=== PATIENT | male | born 1975 | race Caucasian/White ===

== ENCOUNTER 2019-07-11 16:33 | Observation (INO) ==
[2019-07-11] MEDS ORDERED: Tdap (Boostrix) Vaccine 0.5 ML SYRINGE IM ONE (16:43)
[2019-07-11] MEDS ORDERED: *HR* HYDROmorphone 2 MG/ML SYRINGE IVP STA (16:45)
[2019-07-11 21:41] LABS: Basophils % 0.1 %; Hematocrit 43.9 % (37.5-50.1); Hemoglobin 14.9 g/dL (12.9-16.9); Immature Granulocytes % 0.5 % (0-4); Lymphocytes # 0.7 K/mcL (0.6-4.6); Lymphocytes % 4.3 %; Mean Corpuscular HGB Conc 33.9 g/dL (31.6-35.5); Mean Corpuscular Hemoglobin 30.4 pg (28.0-33.3); Mean Corpuscular Volume 89.6 fL (83.0-100.0); Mean Platelet Volume 10.5 fL (9.4-12.4); Monocytes # 1.2 K/mcL (0.0-1.3); Monocytes % 7.1 %; Platelet Count 330 K/mcL (140-400); Red Cell Distribution Width 13.5 % (11.5-14.5)
[2019-07-11 22:04] LABS: BUN/Creatinine Ratio 16 (6-26); Blood Urea Nitrogen 19 mg/dL (6-20); Calcium 8.9 mg/dL (8.6-10.3); Carbon Dioxide 26 mEq/L (23-29); Chloride 103 mEq/L (98-107); Glucose 186 mg/dL (70-105); Osmolality,Calculated 293 (280-300); Potassium 3.7 mEq/L (3.5-5.1); Sodium 138 mEq/L (136-145); Troponin I 0.06 ng/mL (< 0.04); eGFR For African Americans > 60 (> 60); eGFR For Non-African Americans > 60 (> 60)
[2019-07-11] MEDS ORDERED: Aspirin 81 MG TAB.CHEW PO ONE (22:21)
[2019-07-11] MEDS ORDERED: Aspirin 81 MG TAB.CHEW ONE (22:35)
[2019-07-11] MEDS ORDERED: Isovue-370 500 ML BOTTLE IVP ONE (23:18)
[2019-07-12] MEDS ORDERED: Ondansetron 4 MG/2 ML VIAL IVP PRN ×3 (00:29→23:26)
[2019-07-12] MEDS ORDERED: Naloxone 0.4 MG/ML INJ IVP PRN ×3 (00:29→23:26)
[2019-07-12] MEDS ORDERED: Acetaminophen 325 MG TABLET PO PRN ×2 (00:29→23:26)
[2019-07-12] MEDS: *HR* OxyCODONE Immed Rel 5 MG TABLET PO PRN ×3 (02:23→15:18)
[2019-07-12 03:05] LABS: Basophils % 0.2 %; Hematocrit 40.3 % (37.5-50.1); Hemoglobin 13.7 g/dL (12.9-16.9); Immature Granulocytes % 0.3 % (0-4); Lymphocytes # 1.2 K/mcL (0.6-4.6); Lymphocytes % 10.4 %; Mean Corpuscular Hemoglobin 30.4 pg (28.0-33.3); Mean Corpuscular Volume 89.4 fL (83.0-100.0); Mean Platelet Volume 10.3 fL (9.4-12.4); Monocytes # 1.3 K/mcL (0.0-1.3); Monocytes % 11.2 %; Neutrophils # 8.9 K/mcL (1.6-8.9); Platelet Count 314 K/mcL (140-400); Red Blood Count 4.51 M/mcL (4.19-5.50); Red Cell Distribution Width 13.5 % (11.5-14.5); Segmented Neutrophils % 77.9 %; White Blood Count 11.4 K/mcL (4.3-11.1)
[2019-07-12 03:24] LABS: BUN/Creatinine Ratio 17 (6-26); Blood Urea Nitrogen 19 mg/dL (6-20); Calcium 8.6 mg/dL (8.6-10.3); Carbon Dioxide 23 mEq/L (23-29); Chloride 103 mEq/L (98-107); Glucose 144 mg/dL (70-105); Magnesium 1.7 mg/dL (1.6-2.6); Osmolality,Calculated 285 (280-300); Potassium 3.8 mEq/L (3.5-5.1); Sodium 135 mEq/L (136-145); eGFR For African Americans > 60 (> 60); eGFR For Non-African Americans > 60 (> 60)
[2019-07-12] MEDS ORDERED: *HR* Metoprolol 5 MG/5 ML VIAL IVP ONE (03:45)
[2019-07-12] MEDS: *HR* Heparin 5,000 UNIT/ML VIAL SQ SCH ×2 (05:03→09:36)
[2019-07-12] MEDS ORDERED: amLODIPine 5 MG TABLET PO SCH (12:15)
[2019-07-12] MEDS ORDERED: Perflutren Lipid Microsphere 1.3 ML in 0.9 % Sodium Chloride 8.7 ML IVP ONE (12:53)
[2019-07-12] MEDS ORDERED: *HR* HYDROmorphone PF 0.5 MG/0.5 ML SYRINGE IVP PRN (19:50)
[2019-07-12] MEDS ORDERED: *HR* FentaNYL (PF) 100 MCG/2 ML VIAL ONE (20:12)
[2019-07-12] MEDS ORDERED: *HR* Propofol 200 MG/20 ML VIAL IVP ONE (20:12)
[2019-07-12] MEDS ORDERED: *HR* Midazolam HCl 2 MG/2 ML VIAL ONE (20:12)
[2019-07-12] MEDS ORDERED: Dexamethasone 4 MG/ML VIAL ONE (20:13)
[2019-07-12] MEDS ORDERED: Lidocaine -MPF 2% 2 ML VIAL ONE (20:13)
[2019-07-12] MEDS ORDERED: Ondansetron 4 MG/2 ML VIAL ONE (20:13)
[2019-07-12] MEDS ORDERED: *HR* HYDROMORPHONE 2 MG/ML VIAL ONE (20:38)
[2019-07-12] MEDS ORDERED: Acetaminophen IV 1,000 MG/100 ML INFUS..BTL ONE (20:42)
[2019-07-12] MEDS ORDERED: Sennosides 8.6 MG TABLET PO PRN (23:26)
[2019-07-12] MEDS ORDERED: MOM Conc 10 ML UD.LIQ PO PRN (23:26)
[2019-07-12] MEDS ORDERED: *HR* OxyCODONE Immed Rel 5 MG TABLET PO PRN (23:26)
[2019-07-12] MEDS ORDERED: Ringers Solution, Lactated 1,000 ML IVC SCH (23:26)
[2019-07-12] MEDS ORDERED: *HR* Promethazine 25 MG/ML VIAL IVP PRN (23:26)
[2019-07-13] MEDS ORDERED: ceFAZolin 2,000 MG in 0.9 % Sodium Chloride 100 ML IVPB SCH
[2019-07-13 02:28] LABS: Basophils % 0.1 %; Hematocrit 35.1 % (37.5-50.1); Immature Granulocytes % 0.5 % (0-4); Lymphocytes # 0.6 K/mcL (0.6-4.6); Lymphocytes % 7.5 %; Mean Corpuscular HGB Conc 33.9 g/dL (31.6-35.5); Mean Corpuscular Hemoglobin 30.5 pg (28.0-33.3); Mean Platelet Volume 10.4 fL (9.4-12.4); Monocytes # 0.5 K/mcL (0.0-1.3); Neutrophils # 6.8 K/mcL (1.6-8.9); Platelet Count 231 K/mcL (140-400); Red Cell Distribution Width 13.6 % (11.5-14.5); Segmented Neutrophils % 85.9 %; White Blood Count 7.9 K/mcL (4.3-11.1)
[2019-07-13 02:30] LABS: Hemoglobin 11.9 g/dL (12.9-16.9)
[2019-07-13 02:45] LABS: BUN/Creatinine Ratio 14 (6-26); Blood Urea Nitrogen 17 mg/dL (6-20); Calcium 8.2 mg/dL (8.6-10.3); Carbon Dioxide 28 mEq/L (23-29); Chloride 103 mEq/L (98-107); Glucose 192 mg/dL (70-105); Osmolality,Calculated 289 (280-300); Potassium 3.9 mEq/L (3.5-5.1); Sodium 136 mEq/L (136-145); eGFR For African Americans > 60 (> 60); eGFR For Non-African Americans > 60 (> 60)
[2019-07-13] MEDS ORDERED: *HR* Heparin 5,000 UNIT/ML VIAL SQ SCH (06:00)
[2019-07-13 06:40] VITALS: BP 168/97
[2019-07-13] MEDS ORDERED: Ascorbic Acid 500 MG TABLET PO SCH (08:00)
[2019-07-13] MEDS ORDERED: amLODIPine 5 MG TABLET PO SCH (09:00)
[2019-07-13] MEDS ORDERED: Multivit/Ca/Min/Fe/FA 1 TAB TABLET PO SCH (09:00)
[2019-07-13] MEDS ORDERED: Multivit/Ca/Min/Fe/FA 1 TAB TABLET ONE (09:25)
[2019-07-13] MEDS ORDERED: *HR* OxyCODONE Immed Rel 5 MG TABLET ONE (09:25)
[2019-07-13] MEDS ORDERED: amLODIPine 5 MG TABLET ONE (09:25)
[2019-07-13] MEDS ORDERED: Ascorbic Acid 500 MG TABLET ONE (09:25)
== END 2019-07-13 12:10 | disposition home or self-care (01) ==
LOC: 2NENU 16:33 → EMEROOARM 16:33 → 2NENU 07-12 00:55
PROVIDERS: ADMIT Student in an Organized Health Care Education/Training Program; ATTEND Student in an Organized Health Care Education/Training Program

== ENCOUNTER 2019-10-10 15:47 | Observation (INO) ==
[2019-10-10] MEDS ORDERED: Isovue-370 500 ML BOTTLE IVP ONE (16:17)
[2019-10-10] MEDS ORDERED: 0.9 % Sodium Chloride 1,000 ML IVC ONE (16:41)
[2019-10-10 16:53] LABS: Basophils % 0.3 %; Eosinophils # 0.1 K/mcL (0.0-0.6); Eosinophils % 0.6 %; Hematocrit 45.8 % (37.5-50.1); Hemoglobin 15.1 g/dL (12.9-16.9); Immature Granulocytes % 0.2 % (0-4); Lymphocytes # 1.6 K/mcL (0.6-4.6); Lymphocytes % 13.2 %; Mean Corpuscular Hemoglobin 28.9 pg (28.0-33.3); Mean Corpuscular Volume 87.6 fL (83.0-100.0); Mean Platelet Volume 9.6 fL (9.4-12.4); Monocytes # 1.1 K/mcL (0.0-1.3); Monocytes % 8.7 %; Neutrophils # 9.5 K/mcL (1.6-8.9); Platelet Count 266 K/mcL (140-400); Red Blood Count 5.23 M/mcL (4.19-5.50); Red Cell Distribution Width 14.7 % (11.5-14.5); White Blood Count 12.3 K/mcL (4.3-11.1)
[2019-10-10 17:07] LABS: BUN/Creatinine Ratio 15 (6-26); Blood Urea Nitrogen 15 mg/dL (6-20); C-Reactive Protein 82 mg/L (Less than 10); Calcium 9.4 mg/dL (8.6-10.3); Carbon Dioxide 26 mEq/L (23-29); Chloride 101 mEq/L (98-107); Glucose 131 mg/dL (70-105); Osmolality,Calculated 285 (280-300); Potassium 3.5 mEq/L (3.5-5.1); Sodium 136 mEq/L (136-145); eGFR For African Americans > 60 (> 60); eGFR For Non-African Americans > 60 (> 60)
[2019-10-10] MEDS ORDERED: Piperacillin/Tazobactam 3.375 GM in 0.9 % Sodium Chloride Mini Bag 100 ML IVPB ONE (18:40)
[2019-10-10] MEDS ORDERED: Vancomycin 1,500 MG/265 ML IV.SOLN IVPB ONE (18:40)
[2019-10-10] MEDS ORDERED: Naloxone 0.4 MG/ML INJ IVP PRN ×2 (19:34→23:08)
[2019-10-10] MEDS ORDERED: Ondansetron ODT 4 MG TAB.RAPDIS SL PRN (19:34)
[2019-10-10] MEDS ORDERED: 0.9 % Sodium Chloride 1,000 ML IVC SCH (19:45)
[2019-10-10] MEDS ORDERED: Vancomycin (wt based) 1,000 MG VIAL IVPB SCH (20:00)
[2019-10-10 20:01] LABS: Troponin I < 0.03 ng/mL (< 0.04)
[2019-10-10 20:56] LABS: Bilirubin,Urine Negative (Negative); Blood,Urine Negative (Negative); Clarity,Urine Clear (Clear); Color,Urine Yellow (Yellow); Glucose,Urine (UA) Normal (Normal); Ketones,Urine Negative (Negative); Leukocyte Esterase,Urine Negative (Negative); Nitrite,Urine Negative (Negative); Protein,Urine Negative (Neg-Trace); Specific Gravity,Urine > 1.030 (1.010-1.025); Urobilinogen,Urine Normal (Normal)
[2019-10-10] MEDS ORDERED: Acetaminophen 325 MG TABLET PO PRN (23:08)
[2019-10-11] MEDS ORDERED: Piperacillin/Tazobactam 3.375 GM in 0.9 % Sodium Chloride Mini Bag 100 ML IVPB SCH (03:00)
[2019-10-11] MEDS ORDERED: Vancomycin 1,500 MG/265 ML IV.SOLN IVPB SCH (07:00)
[2019-10-11] MEDS ORDERED: Lidocaine -MPF 2% 2 ML VIAL ONE (08:09)
[2019-10-11] MEDS ORDERED: *HR* FentaNYL (PF) 100 MCG/2 ML VIAL ONE ×2 (08:10→08:49)
[2019-10-11] MEDS ORDERED: *HR* Propofol 200 MG/20 ML VIAL IVP ONE (08:11)
[2019-10-11] MEDS ORDERED: *HR* Midazolam HCl 2 MG/2 ML VIAL ONE (08:11)
[2019-10-11] MEDS ORDERED: Ondansetron 4 MG/2 ML VIAL ONE (08:13)
[2019-10-11] MEDS ORDERED: Dexamethasone 4 MG/ML VIAL ONE (08:13)
[2019-10-11] MEDS ORDERED: Ondansetron ODT 4 MG TAB.RAPDIS SL PRN (10:13)
[2019-10-11] MEDS ORDERED: Acetaminophen 325 MG TABLET PO PRN (10:13)
[2019-10-11] MEDS ORDERED: Naloxone 0.4 MG/ML INJ IVP PRN (10:13)
[2019-10-11] MEDS: Piperacillin/Tazobactam 3.375 GM in 0.9 % Sodium Chloride Mini Bag 100 ML IVPB SCH ×2 (10:46→18:35)
[2019-10-11 10:57] LABS: Basophils # 0.1 K/mcL (0.0-0.2); Basophils % 0.4 %; Eosinophils # 0.1 K/mcL (0.0-0.6); Eosinophils % 0.7 %; Hemoglobin 14.1 g/dL (12.9-16.9); Immature Granulocytes % 0.3 % (0-4); Lymphocytes # 1.2 K/mcL (0.6-4.6); Lymphocytes % 9.9 %; Mean Corpuscular Hemoglobin 28.4 pg (28.0-33.3); Mean Corpuscular Volume 88.5 fL (83.0-100.0); Mean Platelet Volume 10.5 fL (9.4-12.4); Monocytes # 1.2 K/mcL (0.0-1.3); Monocytes % 9.9 %; Neutrophils # 9.4 K/mcL (1.6-8.9); Platelet Count 239 K/mcL (140-400); Red Blood Count 4.97 M/mcL (4.19-5.50); Red Cell Distribution Width 15.2 % (11.5-14.5); Segmented Neutrophils % 78.8 %
[2019-10-11 11:45] LABS: Estimated Average Glucose 123 mg/dl
[2019-10-11 12:05] LABS: Alanine Aminotransferase 18 Units/L (7-52); Albumin 4.1 g/dL (3.5-5.7); Albumin/Globulin Ratio 1.4 (1.1-2.2); Alkaline Phosphatase 52 Units/L (34-104); Aspartate Amino Transferase 12 Units/L (13-39); BUN/Creatinine Ratio 11 (6-26); Bilirubin,Total 0.8 mg/dL (0.3-1.0); Blood Urea Nitrogen 11 mg/dL (6-20); Calcium 8.7 mg/dL (8.6-10.3); Carbon Dioxide 23 mEq/L (23-29); Chloride 102 mEq/L (98-107); Chol/HDL Ratio 4.4 (0-4.9); Cholesterol 161 mg/dL (< 200); Globulin 2.9 g/dL (2.4-3.5); Glucose 126 mg/dL (70-105); HDL Cholesterol 37 mg/dL (40-59); LDL Cholesterol,Calculated 102 mg/dL (0-99); Magnesium 1.9 mg/dL (1.6-2.6); Osmolality,Calculated 277 (280-300); Phosphorous 2.5 mg/dL (2.7-4.5); Potassium 4.1 mEq/L (3.5-5.1); Sodium 133 mEq/L (136-145); Triglycerides 111 mg/dL (< 150); Troponin I < 0.03 ng/mL (< 0.04); eGFR For African Americans > 60 (> 60); eGFR For Non-African Americans > 60 (> 60)
[2019-10-11 12:06] LABS: Thyroid Stimulating Hormone 0.689 mcIU/mL (0.340-5.600)
[2019-10-11] MEDS: Vancomycin 1,500 MG/265 ML IV.SOLN IVPB SCH (18:35)
[2019-10-11] MEDS ORDERED: *HR* Heparin 5,000 UNIT/ML VIAL SQ SCH (19:36)
[2019-10-12] MEDS: Piperacillin/Tazobactam 3.375 GM in 0.9 % Sodium Chloride Mini Bag 100 ML IVPB SCH ×3 (03:45→20:10)
[2019-10-12 06:17] LABS: Basophils % 0.1 %; Hematocrit 44.1 % (37.5-50.1); Hemoglobin 14.2 g/dL (12.9-16.9); Immature Granulocytes % 0.4 % (0-4); Lymphocytes # 0.9 K/mcL (0.6-4.6); Lymphocytes % 4.9 %; Mean Corpuscular HGB Conc 32.2 g/dL (31.6-35.5); Mean Corpuscular Hemoglobin 28.6 pg (28.0-33.3); Mean Corpuscular Volume 88.7 fL (83.0-100.0); Monocytes # 0.9 K/mcL (0.0-1.3); Monocytes % 4.8 %; Platelet Count 276 K/mcL (140-400); Red Blood Count 4.97 M/mcL (4.19-5.50); Red Cell Distribution Width 14.7 % (11.5-14.5); Segmented Neutrophils % 89.8 %
[2019-10-12 06:18] LABS: Neutrophils # 17.2 K/mcL (1.6-8.9); White Blood Count 19.1 K/mcL (4.3-11.1)
[2019-10-12] MEDS: Vancomycin 1,500 MG/265 ML IV.SOLN IVPB SCH (06:18)
[2019-10-12 06:36] LABS: BUN/Creatinine Ratio 20 (6-26); Blood Urea Nitrogen 18 mg/dL (6-20); Calcium 9.1 mg/dL (8.6-10.3); Carbon Dioxide 23 mEq/L (23-29); Chloride 105 mEq/L (98-107); Glucose 178 mg/dL (70-105); Osmolality,Calculated 286 (280-300); Potassium 4.2 mEq/L (3.5-5.1); Sodium 135 mEq/L (136-145); eGFR For African Americans > 60 (> 60); eGFR For Non-African Americans > 60 (> 60)
[2019-10-12] MEDS: Vancomycin 2,000 MG/520 ML IV.SOLN IVPB SCH ×2 (07:57→20:10)
[2019-10-12] MEDS ORDERED: Potassium Phosphate 44 MEQ in 0.9 % Sodium Chloride 250 ML IVPB ONE (08:47)
[2019-10-13 02:01] LABS: Basophils % 0.1 %; Eosinophils % 0.2 %; Hematocrit 40.4 % (37.5-50.1); Immature Granulocytes % 0.6 % (0-4); Lymphocytes # 1.4 K/mcL (0.6-4.6); Lymphocytes % 10.5 %; Mean Corpuscular HGB Conc 32.2 g/dL (31.6-35.5); Mean Corpuscular Hemoglobin 28.6 pg (28.0-33.3); Mean Corpuscular Volume 88.8 fL (83.0-100.0); Monocytes # 0.7 K/mcL (0.0-1.3); Monocytes % 5.2 %; Neutrophils # 11.2 K/mcL (1.6-8.9); Platelet Count 270 K/mcL (140-400); Red Blood Count 4.55 M/mcL (4.19-5.50); Segmented Neutrophils % 83.4 %; White Blood Count 13.4 K/mcL (4.3-11.1)
[2019-10-13 02:18] LABS: BUN/Creatinine Ratio 19 (6-26); Blood Urea Nitrogen 16 mg/dL (6-20); Calcium 8.6 mg/dL (8.6-10.3); Carbon Dioxide 21 mEq/L (23-29); Chloride 108 mEq/L (98-107); Glucose 131 mg/dL (70-105); Osmolality,Calculated 285 (280-300); Sodium 136 mEq/L (136-145); eGFR For African Americans > 60 (> 60); eGFR For Non-African Americans > 60 (> 60)
[2019-10-13] MEDS: Piperacillin/Tazobactam 3.375 GM in 0.9 % Sodium Chloride Mini Bag 100 ML IVPB SCH ×2 (04:14→12:40)
[2019-10-13] MEDS: Vancomycin 2,000 MG/520 ML IV.SOLN IVPB SCH (08:03)
[2019-10-13] MEDS ORDERED: Vancomycin 1,500 MG/265 ML IV.SOLN IVPB SCH (20:00)
[2019-10-13] MEDS: Vancomycin 1,750 MG/517.5 ML IV.SOLN IVPB SCH (20:59)
[2019-10-14 09:49] VITALS: BP 132/80
[2019-10-14] MEDS: Vancomycin 1,750 MG/517.5 ML IV.SOLN IVPB SCH (10:07)
[2019-10-14] MEDS ORDERED: Doxycycline 100 MG CAPSULE PO SCH (21:00)
== END 2019-10-14 15:10 | disposition home or self-care (01) ==
LOC: 3NENU 15:47 → EMEROOARM 15:47 → SUATTDRO 21:30 → 3NENU 22:30
PROVIDERS: ADMIT Internal Medicine; ATTEND Internal Medicine